=== PATIENT | male | born 1990 | race Caucasian/White ===

== ENCOUNTER 2024-01-21 08:09 | Emergency (ER) | payer BC ==
[~2024-01-21] VITALS: Ht 180.3 cm; Wt 131.8 kg
[2024-01-21 08:12] VITALS: BP 134/81
[2024-01-21] MEDS ORDERED: MOTRIN 800800 MG/TAB PO (08:45)
[2024-01-21] MEDS ORDERED: SOMA 350MG350 MG/TAB PO (08:45)
[2024-01-21] MEDS ORDERED: PERCOCET 325 MG1 TA2 PO (08:45)
[2024-01-21] MEDS ORDERED: Morphine 10 MG/ML VIAL IM ONE (08:45)
[2024-01-21] MEDS ORDERED: Ketorolac 60 MG/2 ML VIAL IM ONE (08:45)
[2024-01-21 08:56] VITALS: PULSE 74; TEMP 97.8
== END 2024-01-21 08:57 | disposition home or self-care (01) ==
LOC: COL.ER 08:09
DX: M54.50 Low back pain, unspecified (principal)
CPT/HCPCS: J1885; J2270